=== PATIENT | female | born 1985 | race Caucasian/White ===

== ENCOUNTER 2017-11-25 15:30 | Inpatient (IN) | payer BC ==
[2017-11-25 16:46] LABS: INR-International Normal Ratio 1.1; PTT 26.2 SEC (22.9-36.1); Prothrombin Time 13.8 SEC (12.0-14.7)
[2017-11-25 17:02] LABS: ALT (SGPT) 23 U/L (8-55); AST (SGOT) 24 U/L (5-34); Albumin 4.2 g/dL (3.5-5.0); Alcohol Less than 10 mg/dL (Less than 10); Alkaline Phosphatase 86 U/L (40-150); Anion Gap 15 mmol/L (10-20); BUN (Urea Nitrogen) 15 mg/dL (7.0-18.7); Bilirubin, Total 0.4 mg/dL (0.2-1.2); Calc. Creatinine Clearance 0 mL/min (70-130); Carbon Dioxide 21 mmol/L (22-29); Chloride 109 mmol/L (98-107); Estimated GFR-MDRD 85; Globulin 2.7 g/dL (2.4-3.5); Glucose 129 mg/dL (70-105); Potassium 3.7 mmol/L (3.5-5.1); Protein, Total 6.9 g/dL (6.0-8.3); Salicylate Less than 8.0 mg/dL (15.0-30.0); Sodium 141 mmol/L (136-145)
[2017-11-25] MEDS ORDERED: Sodium Chloride 0.9% 1,000 ML IV SCH (17:30)
[2017-11-25] MEDS ORDERED: Dextrose 5% in Water 1,000 ML IV PRN (17:45)
[2017-11-25] MEDS ORDERED: Dextrose 50% Abboject 50 ML SYRINGE SLOW IVP PRN (17:45)
[2017-11-25] MEDS ORDERED: Nitroglycerin 0.4 MG TAB (25 Tab Bottle) SL ONE (18:00)
[2017-11-25] MEDS ORDERED: Promethazine HCl 25 MG/ML VIAL IM/IV PRN (18:01)
[2017-11-25] MEDS ORDERED: hydrOXYzine 25 MG/ML VIAL IM PRN (18:02)
[2017-11-25] MEDS ORDERED: diphenhydrAMINE 25 MG CAP PO PRN (18:19)
[2017-11-25] MEDS ORDERED: diphenhydrAMINE 50 MG CAP PO PRN (18:19)
[2017-11-25] MEDS ORDERED: diphenhydrAMINE 50 MG/ML VIAL IVP PRN ×2 (18:19)
[2017-11-25] MEDS ORDERED: WATER IVPB ONE ×2 (18:30)
[2017-11-25] MEDS ORDERED: DEXTROSE 5% IVPB ONE ×2 (18:30)
[2017-11-25] MEDS ORDERED: ACETYLCYSTEINE IVPB ONE ×2 (18:30)
[2017-11-25] MEDS ORDERED: Diazepam 2 MG TAB PO PRN (20:11)
[2017-11-25] MEDS ORDERED: Nitroglycerin 0.4 MG TAB (25 Tab Bottle) ONE (20:40)
[2017-11-25] MEDS ORDERED: Promethazine HCl 25 MG/ML VIAL ONE (20:40)
[2017-11-25 22:52] VITALS: BMI 28.0
[2017-11-26] MEDS ORDERED: ALPRAZolam 0.25 MG TAB PO SCH (00:45)
--- NOTE | 2017-11-26 01:15 | CON ---
DATE OF CONSULTATION: 11/25/2017 GASTROENTEROLOGY CONSULTATION CHIEF COMPLAINT: Took a lot of Tylenol. HISTORY OF PRESENT ILLNESS: Ms. Joe is a 32-year-old woman who attempted suicide today by ingestin g around 100 Tylenol in a bottle of propranolol around 11:00 this morning. She is not really sure ex actly what time she took the pills. She has a 500-pill count bottle and estimates that she maybe too k around 100 of them. She did take some activated charcoal before she got into ambulance and vomited . She did not see obvious pill fragments in her vomitus. She has had no abdominal pain, no diarrhea , constipation or blood in the stool. She does not care if she lives or dies at this point. She had labs drawn in [place] that showed significantly elevated acetaminophen level. PAST MEDICAL HISTORY: Hypertension, PTSD, breast cancer treated with radiation and bilateral mastect joe. She is BRCA2 positive. PAST SURGICAL HISTORY: Bilateral mastectomy and hysterectomy. She has had port for chemotherapy gilma aysha and removed. She states that she is supposed to have reconstructive surgery in a couple of month s. FAMILY HISTORY: Positive for breast cancer. Negative for GI malignancy. SOCIAL HISTORY: She is down to smoking 2 cigarettes per day. She is trying to quit prior to reconst ructive surgery. She smoked up to a pack a day in the past. She drinks rum several drinks per day. She smoked marijuana recently. She has used cocaine in the past. Denies prior IV drug use. ALLERGIES: No known drug allergies. MEDICATIONS PRIOR TO ADMISSION: Tizanidine, Effexor, propranolol, gabapentin, Remeron. Another medication list shows diazepam and possibly metformin and glyburide, Skelaxin, and Phenergan. REVIEW OF SYSTEMS: Negative x10 systems reviewed except as stated in history of present illness. PHYSICAL EXAMINATION: GENERAL: She is in no acute distress. She is oriented x3. She is tearful and has a somewhat pressu red speech as well. EYES: Have no scleral icterus. OROPHARYNX: Clear without lesions. NECK: No cervical or supraclavicular lymphadenopathy. LUNGS: Clear to auscultation bilaterally. HEART: Regular rate and rhythm. ABDOMEN: Soft, nontender and nondistended. Bowel sounds are present. EXTREMITIES: No lower extremity edema. LABORATORY DATA: At 1628 hours INR is 1.1, creatinine 0.78, bilirubin 0.4, AST 24, ALT 23, alkaline phosphatase 86, albumin 4.2, INR 1.1. Plasma alcohol was undetectable when it was checked in [place] at 13:49 today. Her acetaminophen level at 13:49 was 364. Tylenol ingestion was around 11:00 p.m. Acetaminophen level at 16:28 is 154, which is about 5-1/2 hours after Tylenol ingestion. IMPRESSION: Acetaminophen overdose for attempted suicide. She also took multiple propranolol; howev er, her blood pressure and pulses are okay. Acetaminophen level at 5-1/2 hours after ingestion is 15 4. Acetaminophen overdose nomogram shows this to be above the treatment line. Currently, her LFTs a re normal; however, these may increase well after ingestion as the acetaminophen is absorbed and meta bolized. N-Acetyl cysteine was started in [place] and therefore her prognosis is good. This was wit hin 3 hours of the initial ingestion. RECOMMENDATIONS: 1. N-Acetyl cysteine protocol for acetaminophen overdose. 2. Continue to follow trend of the acetaminophen level and LFTs. 3. Suicide precautions.
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
[2017-11-26] MEDS: Dextrose 5 % And 0.9 % NaCl 1,000 ML IV SCH ×3 (04:12→16:33)
[2017-11-26] MEDS: Famotidine/PF 20 mg/2ml Vial SLOW IVP SCH ×3 (04:12→21:26)
[2017-11-26 04:29] LABS: #Eosinphils 0.2 thou/uL (0.0-0.7); #Lymphocytes 1.1 thou/uL (1.20-3.40); #Monocytes 0.9 thou/uL (0.11-0.59); #Neutrophils 5.3 thou/uL (1.40-6.50); %Basophils 0.4 % (0.0-1.0); %Eosinophils 2.8 % (0.0-10.0); %Lymphocytes 14.1 % (21.0-51.0); %Monocytes 11.6 % (0.0-10.0); %Neutrophils 71.2 % (42.0-75.0); Hemoglobin 12.3 g/dL (12.0-16.0); Mean Corpuscular HGB CONC 33.9 g/dL (32.0-36.0); Mean Corpuscular Hemoglobin 32.2 pg (27.0-31.0); Mean Platelet Volume 6.7 fL (7.4-10.4); Platelet Count 252 thou/uL (130-400); RBC Distribution Width 11.9 % (11.5-14.5); Red Blood Cell (RBC) Count 3.82 mill/uL (4.20-5.40); White Blood Cell (WBC) Count 7.5 thou/uL (4.8-10.8)
[2017-11-26] MEDS ORDERED: Diazepam 2 MG TAB PO PRN (04:36)
[2017-11-26 04:53] LABS: ALT (SGPT) 21 U/L (8-55); AST (SGOT) 22 U/L (5-34); Acetaminophen Less than 6.0 mcg/mL (10.0-30.0); Albumin 3.9 g/dL (3.5-5.0); Alkaline Phosphatase 77 U/L (40-150); Anion Gap 14 mmol/L (10-20); BUN (Urea Nitrogen) 14 mg/dL (7.0-18.7); Bilirubin, Total 0.4 mg/dL (0.2-1.2); Calc. Creatinine Clearance 151 mL/min (70-130); Carbon Dioxide 20 mmol/L (22-29); Chloride 108 mmol/L (98-107); Estimated GFR-MDRD 85; Globulin 2.5 g/dL (2.4-3.5); Glucose 90 mg/dL (70-105); Potassium 3.4 mmol/L (3.5-5.1); Protein, Total 6.4 g/dL (6.0-8.3); Sodium 139 mmol/L (136-145)
[2017-11-26] MEDS ORDERED: tiZANidine HCl 4 MG TAB PO PRN (08:21)
[2017-11-26] MEDS ORDERED: Prevnar 13-Val Conj/PF 0.5 ML SYRINGE IM ONE (09:00)
[2017-11-26] MEDS ORDERED: Gabapentin 400 MG CAP PO SCH (09:00)
[2017-11-26] MEDS: Venlafaxine HCl XR 75 MG CAP PO SCH (09:44)
[2017-11-26] MEDS: Gabapentin 400 MG CAP PO SCH ×3 (09:44→21:14)
--- NOTE | 2017-11-26 14:12 | PDOC.PN ---
- Subjective Encounter Start Date: 11/26/17 Encounter Start Time: 12:55 Subjective: pt up in bed excited to eat food but is not happy about multiple tries -: to start iv - Objective Vital Signs & Weight: Vital Signs (12 hours) Temp Pulse Resp BP Pulse Ox 11/26/17 12:00 98.4 F 84 16 164/71 H 100 11/26/17 08:00 97.5 F L 61 18 99 11/26/17 07:00 97.5 F L 61 18 122/96 H 100 11/26/17 04:07 97.9 F 80 21 H 149/83 H 99 Weight Weight 206 lb 14.4 oz I&O: 11/25/17 11/26/17 11/27/17 06:59 06:59 06:59 Intake Total 1050 Balance 1050 Result Diagrams: 11/26/17 03:46 11/26/17 03:46 Phys Exam - Physical Examination HEENT: PERRLA, moist MMs, sclera anicteric, TM's clear, oral pharynx no lesions , 2+ tonsils Neck: no nodes, no JVD, supple, full ROM Respiratory: no wheezing, no rales, no rhonchi, wheezing present, clear to auscultation bilateral Cardiovascular: RRR, no significant murmur, no rub, gallop, irregular Gastrointestinal: soft, non-tender, no distention, positive bowel sounds Dx/Plan (1) Tylenol overdose Code(s): T39.1X1A - POISONING BY 4-AMINOPHENOL DERIVATIVES, ACCIDENTAL, INIT Status: Acute (2) Suicidal overdose Code(s): T50.902A - POISONING BY UNSP DRUG/MEDS/BIOL SUBST, SELF-HARM, INIT Status: Acute (3) Anxiety Code(s): F41.9 - ANXIETY DISORDER, UNSPECIFIED Status: Acute (4) Depression Code(s): F32.9 - MAJOR DEPRESSIVE DISORDER, SINGLE EPISODE, UNSPECIFIED Status : Acute - Plan lfts normal -: acetaminophen level is less than 6 -: poison control called recommended pt to complete dose of nacetylcysteine * . Review of Systems - Review of Systems ENT: negative: Ear Pain, Ear Discharge, Nose Pain, Nose Discharge, Nose Congestion, Mouth Pain, Mouth Swelling, Throat Pain, Throat Swelling, Other Respiratory: negative: Cough, Dry, Shortness of Breath, Hemoptysis, SOB with Excertion, Pleuritic Pain, Sputum, Wheezing Cardiovascular: negative: chest pain, palpitations, orthopnea, paroxysmal nocturnal dyspnea, edema, light headedness, other Genitourinary: negative: Dysuria, Frequency, Incontinence, Hematuria, Retention , Other - Medications/Allergies Allergies/Adverse Reactions: Allergies Allergy/AdvReac Type Severity Reaction Status Date / Time No Known Allergies Allergy Unverified 11/26/17 01:15 Medications: Current Medications Dextrose/Water (Dextrose 50%) 25 gm SLOW IVP PRN PRN PRN Reason: Hypoglycemia Diazepam (Valium) 2 mg PO Q6HR PRN PRN Reason: Anxiety Diphenhydramine HCl (Benadryl) 25 mg IVP Q4H PRN PRN Reason: Itching & Insomnia Last Admin: 11/26/17 03:24 Dose: 25 mg Diphenhydramine HCl (Benadryl) 50 mg IVP Q4H PRN PRN Reason: Itching & Insomnia Diphenhydramine HCl (Benadryl) 25 mg PO Q4H PRN PRN Reason: Itching & Insomnia Diphenhydramine HCl (Benadryl) 50 mg PO Q4H PRN PRN Reason: Itching & Insomnia Famotidine (Pepcid) 20 mg SLOW IVP Q12HR [facility] Last Admin: 11/26/17 09:52 Dose: Not Given Gabapentin (Neurontin) 800 mg PO TID [facility] Last Admin: 11/26/17 09:44 Dose: 800 mg Glucagon (Glucagon) 1 mg IM PRN PRN PRN Reason: Hypoglycemia Hydroxyzine HCl (Vistaril) 25 mg IM Q4H PRN PRN Reason: Anxiety Last Admin: 11/26/17 04:43 Dose: 25 mg Dextrose/Water (D5w) 1,000 mls @ 0 mls/hr IV .Q0M PRN; As Directed PRN Reason: Hypoglycemia Dextrose/Sodium Chloride (D5 0.9% Ns) 1,000 mls @ 100 mls/hr IV .Q10H [facility] Last Admin: 11/26/17 13:15 Dose: Not Given Mirtazapine (Remeron) 30 mg PO HS [facility] Promethazine HCl (Phenergan) 25 mg IM/IV Q6H PRN PRN Reason: Nausea/Vomiting Tizanidine HCl (Zanaflex) 2 mg PO TID PRN PRN Reason: Muscle Spasm Venlafaxine HCl (Effexor Xr) 75 mg PO DAILY JANNET[facility] Last Admin: 11/26/17 09:44 Dose: 75 mg
--- NOTE | 2017-11-26 14:45 | PRG ---
DATE OF SERVICE: 11/26/2017 SUBJECTIVE: Ms. Joe has no abdominal pain or nausea or vomiting. OBJECTIVE: VITAL SIGNS: Temperature is 98.4, pulse 84, blood pressure 164/71. GENERAL: She is in no acute distress, alert and oriented. LUNGS: Clear to auscultation bilaterally. HEART: Regular rate and rhythm. ABDOMEN: Soft, nontender, nondistended, bowel sounds are present. EXTREMITIES: No lower extremity edema. IMPRESSION: Acetaminophen overdose. Her LFTs remain normal. Her acetaminophen level returned to un detectable levels. She is completing the IV N-acetylcysteine protocol. Her risk for significant tox icity from a liver standpoint now should be low. RECOMMENDATIONS: Repeat liver tests in the morning. If they remain normal, then she should not requ michael further treatment from a liver standpoint.
[2017-11-26] MEDS: Diazepam 2 MG TAB PO PRN (18:36)
[2017-11-26 20:33] LABS: PTT 24.8 SEC (22.9-36.1); Prothrombin Time 13.4 SEC (12.0-14.7)
[2017-11-26 20:44] LABS: ALT (SGPT) 22 U/L (8-55); AST (SGOT) 20 U/L (5-34); Albumin 4.5 g/dL (3.5-5.0); Alkaline Phosphatase 88 U/L (40-150); Bilirubin, Direct 0.1 mg/dL (0.1-0.3); Bilirubin, Total 0.4 mg/dL (0.2-1.2); Protein, Total 7.3 g/dL (6.0-8.3)
[2017-11-26] MEDS ORDERED: Mirtazapine 15 MG TAB PO SCH (21:00)
[2017-11-26] MEDS: Mirtazapine 30 MG TAB PO SCH (21:13)
[2017-11-26] MEDS ORDERED: Sodium Chloride 0.9% 20 ML ONE (21:23)
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
[2017-11-26] MEDS: tiZANidine HCl 4 MG TAB PO PRN (22:39)
[2017-11-27] MEDS: Diazepam 2 MG TAB PO PRN ×3 (05:00→20:41)
[2017-11-27] MEDS: tiZANidine HCl 4 MG TAB PO PRN ×3 (06:19→20:27)
[2017-11-27] MEDS: Venlafaxine HCl XR 75 MG CAP PO SCH (09:10)
[2017-11-27] MEDS: Gabapentin 400 MG CAP PO SCH ×3 (10:02→20:28)
[2017-11-27] MEDS: Famotidine/PF 20 mg/2ml Vial SLOW IVP SCH ×2 (11:52→12:03)
[2017-11-27] MEDS ORDERED: Famotidine 20 MG TAB PO SCH (12:15)
--- NOTE | 2017-11-27 14:50 | PDOC.PN ---
- Subjective Encounter Start Date: 11/27/17 Encounter Start Time: 12:45 Subjective: pt up in bed feels a bit anxious - Objective Vital Signs & Weight: Vital Signs (12 hours) Temp Pulse Resp BP Pulse Ox 11/27/17 08:00 97.1 F L 88 16 100 11/27/17 07:38 97.1 F L 88 16 133/82 100 11/27/17 04:00 96.9 F L 74 16 154/86 H 100 Weight Weight 206 lb 14.4 oz I&O: 11/26/17 11/27/17 11/28/17 06:59 06:59 06:59 Intake Total 1050 1269 Balance 1050 1269 Result Diagrams: 11/26/17 03:46 11/26/17 03:46 Phys Exam - Physical Examination HEENT: PERRLA, moist MMs, sclera anicteric, TM's clear, oral pharynx no lesions , 2+ tonsils Neck: no nodes, no JVD, supple, full ROM Respiratory: no wheezing, no rales, no rhonchi, wheezing present, clear to auscultation bilateral Cardiovascular: RRR, no significant murmur, no rub, gallop, irregular Gastrointestinal: soft, non-tender, no distention, positive bowel sounds Dx/Plan (1) Tylenol overdose Code(s): T39.1X1A - POISONING BY 4-AMINOPHENOL DERIVATIVES, ACCIDENTAL, INIT Status: Acute (2) Suicidal overdose Code(s): T50.902A - POISONING BY UNSP DRUG/MEDS/BIOL SUBST, SELF-HARM, INIT Status: Acute (3) Anxiety Code(s): F41.9 - ANXIETY DISORDER, UNSPECIFIED Status: Acute (4) Depression Code(s): F32.9 - MAJOR DEPRESSIVE DISORDER, SINGLE EPISODE, UNSPECIFIED Status : Acute - Plan pt has completed her course of n acetylcysteine -: ok to leave iv out since she is a hard stick -: Asked nurse to call mental health for eval * . Review of Systems - Review of Systems ENT: negative: Ear Pain, Ear Discharge, Nose Pain, Nose Discharge, Nose Congestion, Mouth Pain, Mouth Swelling, Throat Pain, Throat Swelling, Other Respiratory: negative: Cough, Dry, Shortness of Breath, Hemoptysis, SOB with Excertion, Pleuritic Pain, Sputum, Wheezing Cardiovascular: negative: chest pain, palpitations, orthopnea, paroxysmal nocturnal dyspnea, edema, light headedness, other Gastrointestinal: negative: Nausea, Vomiting, Abdominal Pain, Diarrhea, Constipation, Melena, Hematochezia, Other - Medications/Allergies Allergies/Adverse Reactions: Allergies Allergy/AdvReac Type Severity Reaction Status Date / Time No Known Allergies Allergy Unverified 11/26/17 01:15 Medications: Current Medications Dextrose/Water (Dextrose 50%) 25 gm SLOW IVP PRN PRN PRN Reason: Hypoglycemia Diazepam (Valium) 2 mg PO Q6HR PRN PRN Reason: Anxiety Last Admin: 11/27/17 11:51 Dose: 2 mg Diphenhydramine HCl (Benadryl) 25 mg IVP Q4H PRN PRN Reason: Itching & Insomnia Last Admin: 11/26/17 03:24 Dose: 25 mg Diphenhydramine HCl (Benadryl) 50 mg IVP Q4H PRN PRN Reason: Itching & Insomnia Diphenhydramine HCl (Benadryl) 25 mg PO Q4H PRN PRN Reason: Itching & Insomnia Diphenhydramine HCl (Benadryl) 50 mg PO Q4H PRN PRN Reason: Itching & Insomnia Famotidine (Pepcid) 20 mg PO BID [facility] Gabapentin (Neurontin) 800 mg PO TID [facility] Last Admin: 11/27/17 10:02 Dose: 800 mg Glucagon (Glucagon) 1 mg IM PRN PRN PRN Reason: Hypoglycemia Hydroxyzine HCl (Vistaril) 25 mg IM Q4H PRN PRN Reason: Anxiety Last Admin: 11/26/17 04:43 Dose: 25 mg Dextrose/Water (D5w) 1,000 mls @ 0 mls/hr IV .Q0M PRN; As Directed PRN Reason: Hypoglycemia Mirtazapine (Remeron) 30 mg PO HS [facility] Last Admin: 11/26/17 21:13 Dose: 30 mg Promethazine HCl (Phenergan) 25 mg IM/IV Q6H PRN PRN Reason: Nausea/Vomiting Tizanidine HCl (Zanaflex) 2 mg PO TID PRN PRN Reason: Muscle Spasm Last Admin: 11/27/17 12:16 Dose: 2 mg Venlafaxine HCl (Effexor Xr) 75 mg PO DAILY [facility]ANNET[facility] Last Admin: 11/27/17 09:10 Dose: 75 mg
[2017-11-27] MEDS: Ibuprofen 600 MG TAB PO PRN (16:51)
[2017-11-27] MEDS: Famotidine 20 MG TAB PO SCH (20:27)
[2017-11-27] MEDS: Mirtazapine 30 MG TAB PO SCH (20:29)
[2017-11-28] MEDS: tiZANidine HCl 4 MG TAB PO PRN ×2 (03:38→10:16)
[2017-11-28] MEDS: Ibuprofen 600 MG TAB PO PRN (03:38)
[2017-11-28] MEDS: Diazepam 2 MG TAB PO PRN ×2 (03:46→10:17)
[2017-11-28] MEDS: Famotidine 20 MG TAB PO SCH (08:17)
[2017-11-28] MEDS: Venlafaxine HCl XR 75 MG CAP PO SCH (08:17)
[2017-11-28] MEDS: Gabapentin 400 MG CAP PO SCH (08:17)
[2017-11-28 08:56] VITALS: BP 164/84; TEMP 97.6
== END 2017-11-28 12:20 | DRG 918 ==
LOC: ERS 15:30 → ERHOLD 18:00 → IMCU/EMU 22:34 → ONC 11-26 15:44
PROVIDERS: ADMIT Internal Medicine; ATTEND Internal Medicine
DX: T39.1X2A Poisoning by 4-Aminophenol derivatives, intentional self-harm, initial encounter (principal); T44.7X2A Poisoning by beta-adrenoreceptor antagonists, intentional self-harm, initial encounter; I10 Essential (primary) hypertension; F41.9 Anxiety disorder, unspecified; F32.9 Major depressive disorder, single episode, unspecified; F43.10 Post-traumatic stress disorder, unspecified; F17.210 Nicotine dependence, cigarettes, uncomplicated; Z85.3 Personal history of malignant neoplasm of breast; Z92.3 Personal history of irradiation; Z92.21 Personal history of antineoplastic chemotherapy; Z62.810 Personal history of physical and sexual abuse in childhood; Z79.899 Other long term (current) drug therapy; Z90.13 Acquired absence of bilateral breasts and nipples
CPT/HCPCS: 36415; 80053; 80307; 83690; 85025; 85610; 85730; 90471; 90670; 93005; 96365; 96366; 96368; A4216; G0009; J0132; J1200; J2550; J3410; J7070; S0028

== ENCOUNTER 2017-11-28 23:28 | Emergency (ER) | payer BC ==
[2017-11-28] MEDS ORDERED: Cyclobenzaprine 10 MG TAB ONE (23:38)
== END 2017-11-29 00:25 | disposition home or self-care (01) ==
LOC: ERS 23:28
DX: M62.830 Muscle spasm of back (principal); I10 Essential (primary) hypertension; F41.9 Anxiety disorder, unspecified; F32.9 Major depressive disorder, single episode, unspecified; Z79.899 Other long term (current) drug therapy; F17.210 Nicotine dependence, cigarettes, uncomplicated; Z85.3 Personal history of malignant neoplasm of breast; Z85.05 Personal history of malignant neoplasm of liver
CPT/HCPCS: 99284